=== PATIENT | male | born 1945 | race Caucasian/White ===

== ENCOUNTER → 2017-08-01 09:56 | Outpatient (CLI) | payer MEDICARE, OTHER, SELFPAY ==
--- NOTE | 2017-08-01 | DI.US.S_ITS ---
PROCEDURE: US ARTERIAL DUPLEX LE RT INDICATIONS: PVD TECHNIQUE: Color and pulse Doppler interrogation was performed of the right lower extremity arterial system, with image documentation. COMPARISON: None. FINDINGS: Common femoral artery: 93 cm/sec, with biphasic flow. Deep femoral artery: 81 cm/sec, with biphasic flow. Proximal superficial femoral artery: 110 cm/sec, with biphasic flow. Mid superficial femoral artery: 95 cm/sec, with biphasic flow. Distal superficial femoral artery: 75 cm/sec, with biphasic flow. Popliteal artery: 47 cm/sec, with biphasic flow. Posterior tibial artery: 50 cm/sec, with biphasic flow. Anterior tibial artery/dorsalis pedis: 38 cm/sec, with biphasic flow. Roberts-scale imaging description: Mild scattered plaque IMPRESSION: Normal biphasic flow throughout the right lower extremity, no focal stenosis Dictated by: Chapo Weinstein M.D. on 08/01/2017 at 12:32 Approved by: Chapo Weinstein M.D. on 08/01/2017 at 12:33
--- NOTE | 2017-08-01 | DI.US.S_ITS ---
PROCEDURE: US ABD AORTA ANEURYSM SCREEN INDICATIONS: ABDOMINAL AORTIC ANEURYSM SCREENING TECHNIQUE: Real time scanning was performed of the aorta and iliac arteries, with image documentation. COMPARISON: [facility], [facility] AORTA ANEURYSM SCREENING, 02/28/2016, 14:35. FINDINGS: Aorta: Proximal aortic diameter measures 2.5 cm, previous 2.3 CM. Mid-aorta measures 1.8 cm, previously 1.6 CM. Distal aortic diameter is 1.5 cm, previous 1.6 CM. Iliac arteries: Right common iliac artery measures 1.3 cm unchanged. Left common iliac artery measures 1.2 cm, unchanged IMPRESSION: Negative for aneurysm or significant interval change Dictated by: Chapo Weinstein M.D. on 08/01/2017 at 11:13 Approved by: Chapo Weinstein M.D. on 08/01/2017 at 11:15
== END ==
PROVIDERS: PCP Family Medicine; Visit Provider Family Medicine
DX: Z13.6 Encounter for screening for cardiovascular disorders (principal); I73.9 Peripheral vascular disease, unspecified
CPT/HCPCS: 76706; 93926

== ENCOUNTER → 2023-07-03 12:29 | Outpatient (CLI) | payer MEDICARE, OTHER, SELFPAY ==
--- NOTE | 2023-07-03 12:32 | DI.ECHO.S_ITS ---
[facility] : : [id number] : [place] : : [id number] : : Phone: [phone] Echocardiogram Report + + :Name: TREVOR PIKE Study Date: 07/03/2023 Height: 72 in : :Hospital ReadingLocation: Weight: 185 lb : : Gender: Male BSA: 2.1 m2 : :: 1945 Age: 78 yrs BP: 206/107 mmHg: :Reason For Study: ATHEROSCLEROTIC HEART DISEASE : :Ordering Physician: DOMINICK, : :KODY Adorno Performed By: Chano Simpson : :Referring: KODY TAN : + + Interpretation Summary 1) Mildly increased left ventricular thickness (concentric) with normal size, normal wall motion, and normal systolic function (EF 60-65%). 2) Upper normal right ventricular size with normal function. 3) The left atrium is severely dilated. 4) There is severe aortic stenosis (valve area 0.8cm2, mean gradient 40mmHg, severity ratio 0.25). 5) There is mild to moderate aortic regurgitation. 6) Severe hypertension present during the study (BP 206/107mmHg). Patient attributes it to white coat syndrome per eeg tech note. 7) No prior Echo available for comparison. Procedure: A two-dimensional transthoracic echocardiogram with color flow and Doppler was performed. The study quality was technically adequate. There is no prior echocardiogram noted for this patient. The patient was in sinus rhythm with heart rates between 61-75 bpm during the exam. Left Ventricle: The left ventricle is normal in size. There is mild concentric left ventricular hypertrophy. The ejection fraction is estimated to be 60-65%. Left ventricular systolic function appears normal without focal wall motion abnormalities. Diastolic parameters suggest a relaxation abnormality of the left ventricle, consistent with probable normal filling pressures. Right Ventricle: The right ventricle is at the upper limits of normal in size. The right ventricular systolic function is normal. Atria: The left atrium is severely dilated. Right atrial size is normal. The interatrial septum grossly appears intact with no obvious evidence for an atrial septal defect. Mitral Valve: The mitral valve is normal. There is no mitral valve stenosis. There is mild mitral regurgitation. Aortic Valve: The aortic valve is trileaflet. There is moderate aortic valve sclerosis. There is severe aortic stenosis. The peak aortic velocity is 3.89 m/sec. The aortic valve mean gradient is 40.2 mmHg. The calculated aortic valve area is 0.78 cm2. There is mild to moderate aortic regurgitation. Tricuspid Valve: There is no tricuspid stenosis. There is mild tricuspid regurgitation. Pulmonic Valve: The pulmonic valve is not well visualized. There is no pulmonic valvular stenosis. There is no pulmonic valvular regurgitation. Great Vessels: The aortic root is normal size. The ascending aorta is mildly enlarged. The inferior vena cava was not visualized. Pericardium/ Pleura There is no pericardial effusion. There is no pleural effusion. MMode/2D Measurements & Calculations LVIDd: 5.3 cm LVOT diam: 2.0 cm LVIDs: 3.3 cm Ao root diam: 3.1 cm FS: 37.0 % asc Aorta Diam: 4.1 cm IVSd: 1.1 cm Ao Arch Diam (Prox Trans): 3.5 cm LVPWd: 1.2 cm LV bullard. diameter/BSA (cm/m^2): 2.5 LV sys. diameter/BSA (cm/m^2): 1.6 LA A2 area: 31.8 cm2 RA long axis: 5.9 cm LA A4 area: 29.8 cm2 RA area: 19.2 cm2 LA length (vol): 6.6 cm RA vol: 53.8 ml LA vol: 120.8 ml RA : 26.1 ml/m2 LA vol index: 58.6 ml/m2 RVD1 (basal): 4.0 cm RVD2 (mid): 3.6 cm TAPSE: 2.0 cm Doppler Measurements & Calculations Ao V2 max: 388.5 cm/sec LVOT Max Kranthi: 102.7 cm/sec Ao V2 mean: 306.3 cm/sec LV V1 max P.2 mmHg Ao max P.4 mmHg LV V1 VTI: 27.3 cm Ao mean P.2 mmHg RU(I,D): 0.78 cm2 Ao V2 VTI: 110.7 cm RU(V,D): 0.84 cm2 sev ratio: 0.25 RU indexed to BSA (cm^2/m^2): 0.38 MV E max kranthi: 72.1 cm/sec TR max kranthi: 287.0 cm/sec MV A max kranthi: 59.7 cm/sec TR max P.9 mmHg MV E/A: 1.2 PA V2 max: 104.5 cm/sec Med Peak E' Kranthi: 5.2 cm/sec PA V2 mean: 81.4 cm/sec E/E' med: 13.7 PA mean P.8 mmHg Lat Peak E' Kranthi: 8.1 cm/sec PA pr(Accel): 13.9 mmHg E/E' lat: 8.9 E/e' average: 11.3 MV dec time: 0.17 sec SV(MARY KATEOT): 86.8 ml Reading Physician:04:10 PM
== END ==
PROVIDERS: PCP Family Medicine; Referring Provider Family Medicine; Visit Provider Family Medicine
DX: I08.3 Combined rheumatic disorders of mitral, aortic and tricuspid valves (principal); I77.89 Other specified disorders of arteries and arterioles; I25.10 Atherosclerotic heart disease of native coronary artery without angina pectoris
CPT/HCPCS: 93306